=== PATIENT | male | born 1985 | race Two or more races ===

== ENCOUNTER 2017-09-22 00:16 | Inpatient (IN) | payer MEDICAID ==
[~2017-09-22] VITALS: Ht 167.6 cm; Wt 78.5 kg
[2017-09-22] VITALS (80 sets, daily range): BP systolic 85–112; BP diastolic 28–72
[2017-09-22] MEDS ORDERED: NALOXONE HCL 1 MG/ML 2ML VIAL ONE (00:33)
[2017-09-22] MEDS ORDERED: SODIUM CHLORIDE 0.9% 1,000 ML IV ONE (00:39)
[2017-09-22] MEDS ORDERED: PROPOFOL 10MG/ML 100ML 100 ML IV SCH (00:45)
[2017-09-22] MEDS ORDERED: ETOMIDATE 2MG/ML 10ML VIAL IV ONE ×2 (00:45→13:34)
[2017-09-22] MEDS ORDERED: SUCCINYLCHOLINE CHLORIDE 200MG/10ML VIAL IV ONE ×2 (00:45→13:34)
[2017-09-22] MEDS ORDERED: NALOXONE HCL 1 MG/ML 2ML VIAL IV ONE (00:45)
[2017-09-22 00:58] LABS: CLARITY URINE CLEAR (CLEAR); COLOR URINE YELLOW (YELLOW); KETONES URINE NEGATIVE (NEGATIVE); LEUKOCYTE ESTERASE URINE NEGATIVE (NEGATIVE); NITRITE URINE NEGATIVE (NEGATIVE); OCCULT BLOOD URINE 1+ (NEGATIVE); PH URINE 5.5 (4.5-8.0); PROTEIN URINE 1+ (NEGATIVE); SPECIFIC GRAVITY URINE 1.009 (1.005-1.030); UROBILINOGEN URINE 0.2 E.U./dL (0.2-1.0)
[2017-09-22 01:11] LABS: *AMPHETAMINES SCREEN URINE NEGATIVE (NEGATIVE); *BARBITURATES SCREEN URINE NEGATIVE (NEGATIVE); *BENZODIAZEPINES SCREEN URINE NEGATIVE (NEGATIVE); *COCAINE SCREEN URINE NEGATIVE (NEGATIVE); CANNABINOID URINE SCREEN PRESUMTIVE POSITIVE (NEGATIVE)
[2017-09-22 01:12] LABS: METHADONE URINE SCREEN NEGATIVE (NEGATIVE); OPIATES URINE SCREEN PRESUMTIVE POSITIVE (NEGATIVE); PHENCYCLIDINE URINE SCREEN NEGATIVE (NEGATIVE)
[2017-09-22] MEDS ORDERED: ACETAMINOPHEN 650MG SUPP PR PRN (01:15)
[2017-09-22] MEDS ORDERED: PIPERACILLIN/TAZ 3.375G PREMIX 50 ML IV SCH (01:15)
[2017-09-22 01:26] LABS: BASOPHILS % 0.4 % (0.0-2.0); EOSINOPHILS % 0.6 % (0.0-5.0); HEMATOCRIT. 48.3 % (42.0-52.0); HEMOGLOBIN. 15.9 g/dL (14.0-18.0); LYMPHOCYTES % 17.9 % (20.0-50.0); MEAN CORPUSCULAR HEMOGLOBIN 32.4 pg (28.0-32.0); MEAN CORPUSCULAR VOLUME 98.8 fL (80.0-94.0); MEAN PLATELET VOLUME 7.7 fl (7.4-10.4); MONOCYTES % 2.8 % (2.0-8.0); NEUTROPHILS % 78.3 % (40.0-76.0); PLATELET 290 x1000/uL (130-400); RED BLOOD CELL COUNT 4.89 mill/uL (4.7-6.1)
[2017-09-22 01:32] LABS: CHLORIDE 101 mEq/L (98-107)
[2017-09-22] MEDS: DEXT 5%/0.45% NACL 1000ML 1,000 ML IV SCH ×2 (01:32→14:22)
[2017-09-22 01:33] LABS: PROTHROMBIN TIME 10.5 sec (9.4-11.6)
[2017-09-22 01:37] LABS: ETHANOL BLOOD 144 mg/dL
[2017-09-22 02:27] LABS: BG BASE EXCESS -10.7 mmol/L (-2.0-2.0); BG CARBOXYHEMOGLOBIN 0.3 % (0.5-1.5); BG DEOXYHEMOGLOBIN 0.4 % (0.0-5.0); BG FRACTION INSPIRED OXYGEN 100; BG HCO3 ACT 17.1 mmol/L (22.0-26.0); BG METHEMOGLOBIN 0.3 % (0.0-1.5); BG OXYGEN SATURATION 99.6 % (92.0-98.5); BG PCO2 44.7 mmHg (35.0-45.0); BG PH 7.201 (7.350-7.450); BG PO2 450.2 mmHg (75.0-100.0); BG SAMPLE SITE RIGHT RADIAL; BG TIDAL VOLUME(mL) 650 mL; BG TOTAL HEMOGLOBIN 15.2 g/dL (12.0-18.0); BG VENT MODE VENT - A/C; BG VENT RATE 12 set
[2017-09-22] MEDS ORDERED: PROPOFOL 10MG/ML 100ML 100 ML IV PRN ×2 (04:00→04:15)
[2017-09-22] MEDS ORDERED: VANCOMYCIN 1 G PREMIX 200 ML IV NR (04:00)
[2017-09-22] MEDS: PANTOPRAZOLE SODIUM 40 MG/VIAL IV SCH (05:07)
[2017-09-22] MEDS: PIPERACILLIN/TAZ 3.375G PREMIX 50 ML IV SCH ×3 (05:08→19:54)
[2017-09-22 05:45] LABS: BASOPHILS % 0.1 % (0.0-2.0); HEMATOCRIT. 42.4 % (42.0-52.0); HEMOGLOBIN. 14.5 g/dL (14.0-18.0); LYMPHOCYTES % 19.3 % (20.0-50.0); MEAN CORPUSCULAR HEMOGLOBIN 32.8 pg (28.0-32.0); MEAN CORPUSCULAR VOLUME 96.1 fL (80.0-94.0); MONOCYTES % 3.8 % (2.0-8.0); NEUTROPHILS % 76.8 % (40.0-76.0); PLATELET 232 x1000/uL (130-400); RED BLOOD CELL COUNT 4.41 mill/uL (4.7-6.1); RED CELL DISTRIBUTION WIDTH 12.9 % (11.6-14.6)
[2017-09-22] MEDS: ONDANSETRON HCL 4MG/2ML VIAL IV PRN (05:46)
[2017-09-22 05:52] LABS: CHLORIDE 112 mEq/L (98-107)
[2017-09-22 08:19] LABS: BG BASE EXCESS -4.2 mmol/L (-2.0-2.0); BG CARBOXYHEMOGLOBIN 0.4 % (0.5-1.5); BG DEOXYHEMOGLOBIN 3.4 % (0.0-5.0); BG FRACTION INSPIRED OXYGEN 60; BG METHEMOGLOBIN 0.1 % (0.0-1.5); BG OXYGEN SATURATION 96.6 % (92.0-98.5); BG OXYHEMOGLOBIN 96.1 % (94.0-97.0); BG PCO2 38.9 mmHg (35.0-45.0); BG PO2 84.9 mmHg (75.0-100.0); BG SAMPLE SITE RIGHT RADIAL; BG TIDAL VOLUME(mL) 500 mL; BG VENT MODE VENT - A/C; BG VENT RATE 16 set
[2017-09-22] MEDS ORDERED: ENOXAPARIN 30MG/0.3ML SYR SUBCUT SCH (09:45)
[2017-09-22] MEDS ORDERED: VANCOMYCIN 1 G PREMIX 200 ML IV SCH (10:00)
[2017-09-22] MEDS: MIDAZOLAM HCL 100 MG in DEXT 5% WATER 80 ML IV PRN (10:37)
[2017-09-22] MEDS: FENTANYL CITRATE/PF 500 MCG in SODIUM CHLORIDE 0.9% 40 ML IV PRN ×2 (10:38→19:52)
[2017-09-22 13:42] LABS: HEPATITIS B SURFACE ANTIGEN NEGATIVE
[2017-09-22 14:10] LABS: HEPATITIS B CORE AB IGM NEGATIVE
[2017-09-22 14:11] LABS: HEPATITIS A AB IGM NEGATIVE (NEGATIVE)
[2017-09-22] MEDS: VANCOMYCIN 1 G PREMIX 200 ML IV SCH (19:52)
[2017-09-23] VITALS (96 sets, daily range): BP systolic 106–133; BP diastolic 46–83
[2017-09-23] MEDS: PIPERACILLIN/TAZ 3.375G PREMIX 50 ML IV SCH ×4 (02:06→20:26)
[2017-09-23] MEDS: VANCOMYCIN 1 G PREMIX 200 ML IV SCH ×2 (02:54→09:30)
[2017-09-23 06:03] LABS: BASOPHILS % 0.2 % (0.0-2.0); EOSINOPHILS % 0.2 % (0.0-5.0); HEMATOCRIT. 38.4 % (42.0-52.0); HEMOGLOBIN. 13.3 g/dL (14.0-18.0); LYMPHOCYTES % 10.7 % (20.0-50.0); MEAN CORPUSCULAR HEMOGLOBIN 32.9 pg (28.0-32.0); MEAN CORPUSCULAR VOLUME 95.3 fL (80.0-94.0); MEAN PLATELET VOLUME 8.1 fl (7.4-10.4); MONOCYTES % 7.2 % (2.0-8.0); NEUTROPHILS % 81.7 % (40.0-76.0); PLATELET 169 x1000/uL (130-400); RED BLOOD CELL COUNT 4.03 mill/uL (4.7-6.1)
[2017-09-23] MEDS: DEXT 5%/0.45% NACL 1000ML 1,000 ML IV SCH ×2 (06:06→20:26)
[2017-09-23] MEDS: PANTOPRAZOLE SODIUM 40 MG/VIAL IV SCH (06:06)
[2017-09-23 06:30] LABS: CHLORIDE 107 mEq/L (98-107)
[2017-09-23] MEDS: ENOXAPARIN 40MG/0.4ML SYR SUBCUT SCH (08:05)
[2017-09-23] MEDS: THIAMINE HCL 100MG TABLET PO SCH (09:45)
[2017-09-23] MEDS: FOLIC ACID 1MG TABLET PO SCH (09:45)
[2017-09-23] MEDS: MULTIVITAMINS,THER W-MINERALS TABLET PO SCH (09:45)
[2017-09-23] MEDS: ONDANSETRON HCL 4MG/2ML VIAL IV PRN (10:37)
[2017-09-23] MEDS: FENTANYL CITRATE/PF 500 MCG in SODIUM CHLORIDE 0.9% 40 ML IV PRN ×2 (11:10→23:29)
[2017-09-23] MEDS: MIDAZOLAM HCL 100 MG in DEXT 5% WATER 80 ML IV PRN (13:07)
[2017-09-23] MEDS: ACETAMINOPHEN 650MG/20.3ML UDC PO PRN ×2 (16:44→22:29)
[2017-09-23] MEDS: VANCOMYCIN 1250MG in DEXTROSE 5% WATER 250ML IV SCH (22:20)
[2017-09-24] VITALS (95 sets, daily range): BP systolic 98–145; BP diastolic 39–98
[2017-09-24] MEDS: PIPERACILLIN/TAZ 3.375G PREMIX 50 ML IV SCH ×4 (01:30→19:34)
[2017-09-24 05:24] LABS: BASOPHILS % 0.1 % (0.0-2.0); HEMATOCRIT. 38.5 % (42.0-52.0); HEMOGLOBIN. 13.1 g/dL (14.0-18.0); LYMPHOCYTES % 10.4 % (20.0-50.0); MEAN CORPUSCULAR HEMOGLOBIN 32.3 pg (28.0-32.0); MEAN PLATELET VOLUME 8.2 fl (7.4-10.4); NEUTROPHILS % 79.5 % (40.0-76.0); PLATELET 168 x1000/uL (130-400); RED BLOOD CELL COUNT 4.05 mill/uL (4.7-6.1); RED CELL DISTRIBUTION WIDTH 12.8 % (11.6-14.6)
[2017-09-24 05:41] LABS: CHLORIDE 105 mEq/L (98-107)
[2017-09-24] MEDS: PANTOPRAZOLE SODIUM 40 MG/VIAL IV SCH (05:43)
[2017-09-24 07:08] LABS: BG BASE EXCESS -0.3 mmol/L (-2.0-2.0); BG CARBOXYHEMOGLOBIN 0.7 % (0.5-1.5); BG DEOXYHEMOGLOBIN 2.6 % (0.0-5.0); BG HCO3 ACT 24.2 mmol/L (22.0-26.0); BG METHEMOGLOBIN 0.1 % (0.0-1.5); BG OXYGEN SATURATION 97.4 % (92.0-98.5); BG OXYHEMOGLOBIN 96.6 % (94.0-97.0); BG PO2 92.3 mmHg (75.0-100.0); BG SAMPLE SITE RIGHT RADIAL; BG TIDAL VOLUME(mL) 500 mL; BG TOTAL HEMOGLOBIN 14.2 g/dL (12.0-18.0); BG VENT MODE VENT - A/C; BG VENT RATE 16 set
[2017-09-24 07:18] LABS: HIV SCREEN 4G Non Reactive (Non Reactive)
[2017-09-24] MEDS: MULTIVITAMINS,THER W-MINERALS TABLET PO SCH (08:10)
[2017-09-24] MEDS: FOLIC ACID 1MG TABLET PO SCH (08:10)
[2017-09-24] MEDS: THIAMINE HCL 100MG TABLET PO SCH (08:10)
[2017-09-24] MEDS: ENOXAPARIN 40MG/0.4ML SYR SUBCUT SCH (08:10)
[2017-09-24] MEDS: MIDAZOLAM HCL 50 MG in DEXTROSE 5% WATER 40 ML IV PRN (08:48)
[2017-09-24] MEDS: VANCOMYCIN 1250MG in DEXTROSE 5% WATER 250ML IV SCH ×2 (11:24→22:16)
[2017-09-24] MEDS ORDERED: MORPHINE SULFATE 4 MG/ML CPJ (NOT FOR IM USE) IV PRN (11:45)
[2017-09-24] MEDS ORDERED: POTASSIUM CHLORIDE INJ 40 MEQ in DEXT 5% WATER 250 ML IV ONE (13:00)
[2017-09-24] MEDS: CHLORDIAZEPOXIDE 5 MG CAPSULE PO SCH ×2 (13:00→21:01)
[2017-09-24] MEDS: ACETAMINOPHEN 650MG/20.3ML UDC PO PRN (13:00)
[2017-09-24 14:20] LABS: BG DEOXYHEMOGLOBIN 4.6 % (0.0-5.0); BG FRACTION INSPIRED OXYGEN 50; BG HCO3 ACT 25.5 mmol/L (22.0-26.0); BG METHEMOGLOBIN 0.3 % (0.0-1.5); BG OXYGEN SATURATION 95.3 % (92.0-98.5); BG OXYHEMOGLOBIN 94.1 % (94.0-97.0); BG PCO2 49.1 mmHg (35.0-45.0); BG PH 7.333 (7.350-7.450); BG PO2 80.5 mmHg (75.0-100.0); BG PRESSURE SUPPORT 10; BG SAMPLE SITE LEFT RADIAL; BG TIDAL VOLUME(mL) 500 mL; BG TOTAL HEMOGLOBIN 14.4 g/dL (12.0-18.0); BG VENT MODE VENT - SIMV; BG VENT RATE 8 set
[2017-09-24] MEDS: DEXT 5%/0.45% NACL 1000ML 1,000 ML IV SCH (16:44)
[2017-09-25] VITALS (84 sets, daily range): BP systolic 76–150; BP diastolic 32–101
[2017-09-25] MEDS: PIPERACILLIN/TAZ 3.375G PREMIX 50 ML IV SCH ×4 (03:42→21:16)
[2017-09-25] MEDS: DEXT 5%/0.45% NACL 1000ML 1,000 ML IV SCH (03:42)
[2017-09-25] MEDS: MIDAZOLAM HCL 50 MG in DEXTROSE 5% WATER 40 ML IV PRN (04:12)
[2017-09-25] MEDS: PANTOPRAZOLE SODIUM 40 MG/VIAL IV SCH (05:54)
[2017-09-25] MEDS: CHLORDIAZEPOXIDE 5 MG CAPSULE PO SCH ×3 (05:54→21:16)
[2017-09-25 06:03] LABS: BASOPHILS % 0.1 % (0.0-2.0); HEMATOCRIT. 38.1 % (42.0-52.0); HEMOGLOBIN. 13.3 g/dL (14.0-18.0); LYMPHOCYTES % 10.3 % (20.0-50.0); MEAN CORPUSCULAR HEMOGLOBIN 32.6 pg (28.0-32.0); MEAN CORPUSCULAR VOLUME 93.8 fL (80.0-94.0); MEAN PLATELET VOLUME 8.5 fl (7.4-10.4); NEUTROPHILS % 78.6 % (40.0-76.0); PLATELET 182 x1000/uL (130-400); RED BLOOD CELL COUNT 4.06 mill/uL (4.7-6.1); RED CELL DISTRIBUTION WIDTH 12.4 % (11.6-14.6)
[2017-09-25] MEDS: LORAZEPAM 2MG/ML CPJ IV PRN ×2 (08:11→22:30)
[2017-09-25 09:22] LABS: BG BASE EXCESS -2.3 mmol/L (-2.0-2.0); BG CARBOXYHEMOGLOBIN 0.5 % (0.5-1.5); BG DEOXYHEMOGLOBIN 4.1 % (0.0-5.0); BG FRACTION INSPIRED OXYGEN 50; BG HCO3 ACT 21.7 mmol/L (22.0-26.0); BG METHEMOGLOBIN 0.2 % (0.0-1.5); BG OXYGEN SATURATION 95.9 % (92.0-98.5); BG OXYHEMOGLOBIN 95.2 % (94.0-97.0); BG PCO2 34.7 mmHg (35.0-45.0); BG PH 7.413 (7.350-7.450); BG PO2 79.5 mmHg (75.0-100.0); BG PRESSURE SUPPORT 10; BG SAMPLE SITE RIGHT BRACHIAL; BG TOTAL HEMOGLOBIN 13.8 g/dL (12.0-18.0); BG VENT MODE VENT - CPAP
[2017-09-25] MEDS: FOLIC ACID 1MG TABLET PO SCH (09:40)
[2017-09-25] MEDS: MULTIVITAMINS,THER W-MINERALS TABLET PO SCH (09:40)
[2017-09-25] MEDS: THIAMINE HCL 100MG TABLET PO SCH (09:40)
[2017-09-25] MEDS: ENOXAPARIN 40MG/0.4ML SYR SUBCUT SCH (10:32)
[2017-09-25] MEDS: VANCOMYCIN 1500MG in DEXTROSE 5% WATER 250ML IV SCH ×2 (10:32→22:30)
[2017-09-25] MEDS ORDERED: KCL 20MEQ/100ML PREMIX 100 ML IV NR (12:00)
[2017-09-26] VITALS (41 sets, daily range): BP systolic 112–154; BP diastolic 60–95
[2017-09-26] MEDS: PIPERACILLIN/TAZ 3.375G PREMIX 50 ML IV SCH ×4 (02:44→20:03)
[2017-09-26] MEDS: DEXT 5%/0.45% NACL 1000ML 1,000 ML IV SCH (03:13)
[2017-09-26] MEDS: PANTOPRAZOLE SODIUM 40 MG/VIAL IV SCH (05:19)
[2017-09-26] MEDS: CHLORDIAZEPOXIDE 5 MG CAPSULE PO SCH ×3 (05:19→21:34)
[2017-09-26] MEDS: ENOXAPARIN 40MG/0.4ML SYR SUBCUT SCH (09:51)
[2017-09-26] MEDS: THIAMINE HCL 100MG TABLET PO SCH (09:52)
[2017-09-26] MEDS: MULTIVITAMINS,THER W-MINERALS TABLET PO SCH (09:52)
[2017-09-26] MEDS: FOLIC ACID 1MG TABLET PO SCH (09:52)
[2017-09-26] MEDS: VANCOMYCIN 1500MG in DEXTROSE 5% WATER 250ML IV SCH (10:58)
[2017-09-26] MEDS: ACETAMINOPHEN 650MG/20.3ML UDC PO PRN (15:50)
[2017-09-26] MEDS: DIPHENHYDRAMINE 50MG/ML VIAL IV PRN (16:20)
[2017-09-27] VITALS (24 sets, daily range): BP systolic 103–147; BP diastolic 0–90
[2017-09-27] MEDS: DEXT 5%/0.45% NACL 1000ML 1,000 ML IV SCH (01:41)
[2017-09-27] MEDS: PIPERACILLIN/TAZ 3.375G PREMIX 50 ML IV SCH ×4 (01:41→21:12)
[2017-09-27 04:51] LABS: HEMATOCRIT. 40.8 % (42.0-52.0); HEMOGLOBIN. 14.3 g/dL (14.0-18.0); MEAN CORPUSCULAR HEMOGLOBIN 32.5 pg (28.0-32.0); MEAN CORPUSCULAR VOLUME 92.9 fL (80.0-94.0); MEAN PLATELET VOLUME 7.8 fl (7.4-10.4); PLATELET 235 x1000/uL (130-400); RED CELL DISTRIBUTION WIDTH 12.5 % (11.6-14.6)
[2017-09-27] MEDS: PANTOPRAZOLE SODIUM 40 MG/VIAL IV SCH (05:40)
[2017-09-27] MEDS: CHLORDIAZEPOXIDE 5 MG CAPSULE PO SCH ×3 (05:40→21:12)
[2017-09-27] MEDS: THIAMINE HCL 100MG TABLET PO SCH (09:41)
[2017-09-27] MEDS: MULTIVITAMINS,THER W-MINERALS TABLET PO SCH (09:41)
[2017-09-27] MEDS: FOLIC ACID 1MG TABLET PO SCH (09:41)
[2017-09-27] MEDS: ENOXAPARIN 40MG/0.4ML SYR SUBCUT SCH (09:42)
[2017-09-27] MEDS: METRONIDAZOLE 500MG TABLET PO SCH ×2 (10:00→15:45)
[2017-09-27 10:24] LABS: PLATELET ESTIMATE NORMAL
[2017-09-27] MEDS ORDERED: POTASSIUM CHLORIDE 20MEQ TABLET SR PO NR (14:30)
[2017-09-28] VITALS: BP 123/69
[2017-09-28] MEDS: PIPERACILLIN/TAZ 3.375G PREMIX 50 ML IV SCH ×4 (03:21→22:03)
[2017-09-28] MEDS: METRONIDAZOLE 500MG TABLET PO SCH ×3 (03:35→22:03)
[2017-09-28 04:00] VITALS: BP 122/77
[2017-09-28] MEDS: PANTOPRAZOLE SODIUM 40 MG/VIAL IV SCH (05:48)
[2017-09-28] MEDS: CHLORDIAZEPOXIDE 5 MG CAPSULE PO SCH ×3 (05:49→22:03)
[2017-09-28 08:00] VITALS: BP 116/78
[2017-09-28 08:55] LABS: BASOPHILS % 0.3 % (0.0-2.0); EOSINOPHILS % 3.9 % (0.0-5.0); HEMATOCRIT. 39.8 % (42.0-52.0); HEMOGLOBIN. 14.1 g/dL (14.0-18.0); LYMPHOCYTES % 17.7 % (20.0-50.0); MEAN CORPUSCULAR HEMOGLOBIN 32.7 pg (28.0-32.0); MEAN CORPUSCULAR VOLUME 92.1 fL (80.0-94.0); MEAN PLATELET VOLUME 7.8 fl (7.4-10.4); MONOCYTES % 14.9 % (2.0-8.0); NEUTROPHILS % 63.2 % (40.0-76.0); PLATELET 270 x1000/uL (130-400); RED BLOOD CELL COUNT 4.32 mill/uL (4.7-6.1); RED CELL DISTRIBUTION WIDTH 12.6 % (11.6-14.6)
[2017-09-28 08:58] LABS: CHLORIDE 101 mEq/L (98-107)
[2017-09-28] MEDS: MULTIVITAMINS,THER W-MINERALS TABLET PO SCH (09:14)
[2017-09-28] MEDS: FOLIC ACID 1MG TABLET PO SCH (09:14)
[2017-09-28] MEDS: ENOXAPARIN 40MG/0.4ML SYR SUBCUT SCH (09:14)
[2017-09-28] MEDS: THIAMINE HCL 100MG TABLET PO SCH (09:14)
[2017-09-28] MEDS ORDERED: POTASSIUM CHLORIDE 20MEQ TABLET SR PO SCH (10:45)
[2017-09-28 16:00] VITALS: BP 116/79
[2017-09-28 20:00] VITALS: BP 126/83
[2017-09-29] MEDS: METRONIDAZOLE 500MG TABLET PO SCH ×3 (02:09→17:27)
[2017-09-29] MEDS: PIPERACILLIN/TAZ 3.375G PREMIX 50 ML IV SCH ×4 (02:09→20:55)
[2017-09-29 04:45] VITALS: BP 119/71
[2017-09-29] MEDS: PANTOPRAZOLE SODIUM 40 MG/VIAL IV SCH (05:21)
[2017-09-29] MEDS: CHLORDIAZEPOXIDE 5 MG CAPSULE PO SCH ×2 (05:21→14:00)
[2017-09-29 08:00] VITALS: BP 112/73
[2017-09-29] MEDS: THIAMINE HCL 100MG TABLET PO SCH (08:43)
[2017-09-29] MEDS: MULTIVITAMINS,THER W-MINERALS TABLET PO SCH (08:43)
[2017-09-29] MEDS: FOLIC ACID 1MG TABLET PO SCH (08:43)
[2017-09-29] MEDS: ENOXAPARIN 40MG/0.4ML SYR SUBCUT SCH (08:44)
[2017-09-29 12:00] VITALS: BP 115/78
[2017-09-29 16:00] VITALS: BP 122/78
[2017-09-29] MEDS: DIPHENHYDRAMINE 50MG/ML VIAL IV PRN (17:27)
[2017-09-29 20:00] VITALS: BP 119/77
[2017-09-30] VITALS: BP 109/65
[2017-09-30] MEDS: METRONIDAZOLE 500MG TABLET PO SCH ×3 (02:30→17:22)
[2017-09-30 04:00] VITALS: BP 109/65
[2017-09-30] MEDS: PANTOPRAZOLE SODIUM 40 MG/VIAL IV SCH (06:09)
[2017-09-30 07:58] LABS: BASOPHILS % 0.4 % (0.0-2.0); EOSINOPHILS % 4.6 % (0.0-5.0); HEMATOCRIT. 42.2 % (42.0-52.0); HEMOGLOBIN. 14.6 g/dL (14.0-18.0); LYMPHOCYTES % 20.5 % (20.0-50.0); MEAN CORPUSCULAR HEMOGLOBIN 32.4 pg (28.0-32.0); MEAN CORPUSCULAR VOLUME 93.6 fL (80.0-94.0); MEAN PLATELET VOLUME 7.7 fl (7.4-10.4); MONOCYTES % 7.9 % (2.0-8.0); NEUTROPHILS % 66.6 % (40.0-76.0); PLATELET 410 x1000/uL (130-400); RED BLOOD CELL COUNT 4.51 mill/uL (4.7-6.1); RED CELL DISTRIBUTION WIDTH 12.6 % (11.6-14.6)
[2017-09-30 08:00] VITALS: BP 113/71
[2017-09-30 08:05] LABS: CHLORIDE 101 mEq/L (98-107)
[2017-09-30] MEDS: ENOXAPARIN 40MG/0.4ML SYR SUBCUT SCH (08:26)
[2017-09-30] MEDS: FOLIC ACID 1MG TABLET PO SCH (08:26)
[2017-09-30] MEDS: THIAMINE HCL 100MG TABLET PO SCH (08:26)
[2017-09-30] MEDS: MULTIVITAMINS,THER W-MINERALS TABLET PO SCH (08:26)
[2017-09-30] MEDS ORDERED: FUROSEMIDE 40MG/4ML VIAL IVP SCH (10:30)
[2017-09-30 12:00] VITALS: BP 119/80
[2017-09-30 16:00] VITALS: BP 111/74
[2017-09-30] MEDS: PIPERACILLIN/TAZ 3.375G PREMIX 50 ML IV SCH (17:22)
[2017-09-30 20:00] VITALS: BP 107/83
[2017-10-01] VITALS: BP 112/77
[2017-10-01] MEDS: PIPERACILLIN/TAZ 3.375G PREMIX 50 ML IV SCH ×2 (01:12→07:43)
[2017-10-01] MEDS: METRONIDAZOLE 500MG TABLET PO SCH (01:55)
[2017-10-01] MEDS ORDERED: POTASSIUM CHLORIDE 20MEQ TABLET SR PO NR (03:45)
[2017-10-01 04:00] VITALS: BP 97/64
[2017-10-01] MEDS: PANTOPRAZOLE SODIUM 40 MG/VIAL IV SCH (07:43)
[2017-10-01 08:00] VITALS: BP 107/75
[2017-10-01] MEDS: THIAMINE HCL 100MG TABLET PO SCH (08:25)
[2017-10-01] MEDS: MULTIVITAMINS,THER W-MINERALS TABLET PO SCH (08:25)
[2017-10-01] MEDS: FOLIC ACID 1MG TABLET PO SCH (08:25)
[2017-10-01] MEDS: ENOXAPARIN 40MG/0.4ML SYR SUBCUT SCH (08:25)
[2017-10-01] MEDS ORDERED: FUROSEMIDE 40MG/4ML VIAL IVP SCH (09:00)
[2017-10-01 09:09] VITALS: BP 107/75
== END 2017-10-01 10:20 | disposition home or self-care (01) | DRG 720 ==
LOC: ER 00:16 → SUPCPDRO 01:05 → MICUSO 01:15 → ENRESERV 01:59 → 6EST 09-27 16:10
PROVIDERS: ADMIT Hospitalist; ATTEND Hospitalist
PROC: 5A1945Z Respiratory Ventilation, 24-96 Consecutive Hours (ICD-10-PCS; principal; 2017-09-22)
PROC: 0BH17EZ Insertion of Endotracheal Airway into Trachea, Via Natural or Artificial Opening (ICD-10-PCS; 2017-09-22)
DX: A41.9 Sepsis, unspecified organism (principal); J96.01 Acute respiratory failure with hypoxia; J69.0 Pneumonitis due to inhalation of food and vomit; R65.21 Severe sepsis with septic shock; G93.40 Encephalopathy, unspecified; N17.9 Acute kidney failure, unspecified; R00.1 Bradycardia, unspecified; E87.5 Hyperkalemia; R74.0 Nonspecific elevation of levels of transaminase and lactic acid dehydrogenase [LDH]; F12.90 Cannabis use, unspecified, uncomplicated; F10.10 Alcohol abuse, uncomplicated; I11.0 Hypertensive heart disease with heart failure; T51.0X1A Toxic effect of ethanol, accidental (unintentional), initial encounter; I50.9 Heart failure, unspecified; G31.2 Degeneration of nervous system due to alcohol; K76.0 Fatty (change of) liver, not elsewhere classified; R21 Rash and other nonspecific skin eruption; Z87.81 Personal history of (healed) traumatic fracture; Z78.1 Physical restraint status; Y92.89 Other specified places as the place of occurrence of the external cause
CPT/HCPCS: 31500; 36415; 36600; 70450; 71045; 71046; 71250; 76700; 80048; 80053; 80202; 80305; 80307; 80329; 81003; 82248; 82375; 82805; 82962; 83036; 83735; 83880; 84443; 84478; 84484; 85025; 85610; 86705; 86709; 86803; 87040; 87186; 87340; 92610; 93005; 93306; 93970; 94002; 94003; 96374; 96375; 97162; 97165; 99291; C1893; C9113; G0482; J0330; J1200; J1650; J1940; J2060; J2250; J2270; J2310; J2405; J2543; J2704; J3010; J3370; J3480; J3490; J7030; J7040; J7060